=== PATIENT | male | born 1960 | race Caucasian/White ===

== ENCOUNTER 2021-11-28 00:24 | Day surgery (SDC) | payer OTHER, SELFPAY ==
[2021-11-11 14:28] VITALS: BMI 32.5
[2021-11-28 07:26] VITALS: BP 143/97; PULSE 76; RESP 16; TEMP 36.1; O2SAT 97; BMI 33.0
[2021-11-28] MEDS: LACTATED RINGERS 1,000 ML 150 ML IV CONT (07:39)
--- NOTE | 2021-11-28 08:07 | WPDGICN ---
Assessment and Plan Assessment and plan (1) Screening for colorectal cancer: Code(s): Z12.11 - Encounter for screening for malignant neoplasm of colon; Z12.12 - Encounter for screening for malignant neoplasm of rectum Status: Acute Assessment and Plan: Patient presents for screening colonoscopy. Further recommendations will be given after endoscopy. GI Consult Note Consult date/time: 11/28/21 08:07 HPI: Josiah Rubalcava is a 61 year old male Presents for screening colonoscopy. Patient's current weight appetite bowel movements are normal. Family history noncontributory. Patient reports previous colonoscopy with polyp at perhaps 7 years ago. He states that he currently has normal bowel movements with no bleeding. He presents today for neoplasia screening Review of Systems Review of Systems: All systems reviewed & are unremarkable except as noted in HPI and below PMFSH Family History Family History Father Patient's father is , Onset Age: 80 Family history of chronic obstructive pulmonary disease Mother Family history of cardiovascular disease Other Asthma Family history of coronary artery disease Social History Social History Smoking status: Never smoker Second hand tobacco smoke exposure: No Alcohol intake: current Meds Home Medications and Allergies Home Medications Medication Instructions Recorded Confirmed Type lisinopril 10 mg tablet See Rx Instructions .ROUTE 03/02/21 11/28/21 Rx .COMPLEX #90 tablet sildenafil 100 mg tablet 100 mg PO DAILY PRN #8 tablet 03/29/21 11/28/21 Rx Allergies Allergy/AdvReac Type Severity Reaction Status Date / Time demeclocycline Allergy Unknown Unknown Verified 11/28/21 07:24 Vital Signs Vital Signs - 24 hr 11/28/21 07:26 Temperature 97 F L Pulse Rate 76 Respiratory Rate 16 Blood Pressure 143/97 H Pulse Oximetry 97 Exam Narrative: physical exam reveals patient to be alert. Vital signs stable. HEENT exam is unremarkable. Patient is anicteric. Lungs are clear to auscultation and percussion. Heart is without murmur or extra sounds. Abdominal exam bowel sounds are present soft nontender with no organomegaly. Digital external rectal exam is normal.
--- NOTE | 2021-11-28 08:16 | P.PNAN_ITS ---
Anes - Initial Pre Proc Eval Procedure: Operation Date: 11/28/21 08:45 Proposed Procedures p Screening Colonoscopy - Nick Mccormick MD Date/Time: 11/28/21 08:16 Surgeon: Nick Mccormick MD Pre Op Diagnosis: neoplasm screening Patient Data Age: 61 Gender: M Height: 1.83 m Weight: 110.7 kg Last Vital Signs Temp 97 F L 11/28/21 07:26 Pulse 76 11/28/21 07:26 Resp 16 11/28/21 07:26 BP 143/97 H 11/28/21 07:26 Pulse Ox 97 11/28/21 07:26 Allergies Allergy/AdvReac Type Severity Reaction Status Date / Time demeclocycline Allergy Unknown Unknown Verified 11/28/21 07:24 Home Medications Medication Instructions Recorded Confirmed Type lisinopril 10 mg tablet See Rx Instructions .ROUTE 03/02/21 11/28/21 Rx .COMPLEX #90 tablet sildenafil 100 mg tablet 100 mg PO DAILY PRN #8 tablet 03/29/21 11/28/21 Rx Patient hx anesthesia problems: none Family hx anesthesia problems: none Results Review: All pre-operative results and documents have been reviewed as part of the pre-operative evaluation. [facility] Past Medical History Medical History (Updated 11/28/21 @ 08:11 by Miguel Angel Ontiveros MD) Hyperglycemia Hypertension Family History Family History Father Patient's father is , Onset Age: 80 Family history of chronic obstructive pulmonary disease Mother Family history of cardiovascular disease Other Asthma Family history of coronary artery disease Social History Social History Smoking status: Never smoker Second hand tobacco smoke exposure: No Alcohol intake: current Anes - Eval Final PreProcedure Day of Procedure 11/28/21 08:16 Patient weight: obese Heart: regular rate and rhythm Lungs: clear to auscultation Airway: Mallampati scale Neurological: alert and oriented Last oral intake: >/= 8 hours ASA classification: II Emergent: no Anesthetic plan: proceed Anesthesia type and monitoring: general GIVS and standard monitoring Results Review: All pre-operative results and documents have been reviewed as part of the pre-operative evaluation. Informed Consent: The patient's anesthetic plan and its attendant risks and benefits were discussed with the patient/family/POA. Questions were solicited and answers provided to the satisfaction of the patient/family/POA.
[2021-11-28] MEDS: SIMETHICONE ORAL SUSPENSION 20 MG/0.3 ML 30 ML BOTTLE 0.6 ML IRRIGATION (08:45)
[2021-11-28 08:55] VITALS: BP 120/77; PULSE 72; RESP 23; O2SAT 98
[2021-11-28 09:05] VITALS: BP 136/98; PULSE 66; RESP 19; O2SAT 98
[2021-11-28 09:15] VITALS: BP 134/102; PULSE 62; RESP 20; O2SAT 100
== END 2021-11-28 09:25 | disposition home or self-care (01) ==
PROVIDERS: PCP Physician Assistant; Visit Provider Internal Medicine Gastroenterology
PROC: 0DJD8ZZ Inspection of Lower Intestinal Tract, Via Natural or Artificial Opening Endoscopic (ICD-10-PCS; CPT 45378; principal; 2021-11-28 08:45)
DX: Z12.11 Encounter for screening for malignant neoplasm of colon (principal); K64.8 Other hemorrhoids; K57.30 Diverticulosis of large intestine without perforation or abscess without bleeding; I10 Essential (primary) hypertension; R73.9 Hyperglycemia, unspecified; E66.9 Obesity, unspecified; Z68.33 Body mass index [BMI] 33.0-33.9, adult
CPT/HCPCS: 45378; J2704; J7120

== ENCOUNTER 2024-11-20 10:02 | Outpatient (CLI) | payer MEDICARE, SELFPAY ==
--- NOTE | ~2024-11-20 | XR_ITS ---
EXAMINATION: XR finger 3rd RT min 2V DATE: 11/20/2024 10:27 INDICATION: Right hand third digit pain. TECHNIQUE: 4 views of right hand third digit were obtained. COMPARISON: Radiographs 11/19/16 FINDINGS: Alignment is normal. No fracture. There is moderate osteoarthritis of third metacarpophalan geal joint and mild osteoarthritis of third proximal and distal interphalangeal joints. IMPRESSION: 1. Polyarticular osteoarthritis. Reviewed, dictated and finalized at location A. T COUNTER ATTENDANT
== END 2024-11-20 10:03 | disposition home or self-care (01) ==
PROVIDERS: PCP Nurse Practitioner; Visit Provider Nurse Practitioner
DX: M19.041 Primary osteoarthritis, right hand (principal)
CPT/HCPCS: 73140